=== PATIENT | female | born 1955 | race Caucasian/White ===

== ENCOUNTER 2016-06-01 19:39 | Emergency (ER) | payer OTHER ==
--- NOTE | 2016-06-01 20:05 | EDPHY ---
H & P Stated Complaint: L wrist surg apr, cast removed 6 days ago - a blister has become open wound Time Seen by Provider: 06/01/16 20:04 HPI/ROS: CHIEF COMPLAINT: Left wrist blister. HISTORY OF PRESENT ILLNESS: The patient is a 60-year-old female who presents with a blister on her left wrist. She initially had wrist surgery on 16 April after breaking her wrist and had the cast removed 5 days ago. She immediately noticed a dry blistered area near the suture line that was lanced by the nurse who removed her cast. Since then the blister has become more erythematous and developed drainage. She denies fever, nausea, arm redness. No chest pain, shortness of breath, palpitations, vomiting, diarrhea, urinary complaints, headache, lightheadedness. REVIEW OF SYSTEMS: Aside from elements discussed in the HPI, a comprehensive 10-point review of systems was reviewed and is negative. PAST MEDICAL HISTORY: Partial thyroidectomy, tonsillectomy, left wrist surgery. SOCIAL HISTORY: . VITAL SIGNS: Reviewed by me Alert conversant pleasant EXTREMITIES: Left arm: healing volar incision on forearm. There is an 1cm superficial area of blistering at distal end of incision with small amount of discharge at the base. No warmth. No swelling. Limited ROM at the wrist secondary to prior injury. Portions of this note were transcribed by a manager medical affairs. I personally performed a history, physical exam, medical decision making, and confirmed accuracy of information the transcribed note. Source: Patient Exam Limitations: No limitations - Medical/Surgical History Hx Asthma: No Hx Chronic Respiratory Disease: No Hx Diabetes: No Hx Cardiac Disease: No Hx Renal Disease: No Hx Cirrhosis: No Hx Alcoholism: No Hx HIV/AIDS: No Hx Splenectomy or Spleen Trauma: No Other PMH: 1/2 thyroid removed, tonsillectomy, L wrist surg - Social History Smoking Status: Never smoked Constitutional: Initial Vital Signs Temperature (C) 37 C 06/01/16 19:43 Heart Rate 77 06/01/16 19:43 Respiratory Rate 16 06/01/16 19:43 Blood Pressure 186/96 H 06/01/16 19:43 O2 Sat (%) 94 06/01/16 19:43 O2 Delivery Mode Room Air Allergies/Adverse Reactions: Sulfa (Sulfonamide Antibiotics) Allergy (Verified 06/01/16 19:47) Home Medications: Medication Instructions Recorded CALCIUM 06/01/16 Cephalexin [Keflex (RX)] 500 mg PO QID 6 Days 06/01/16 [place] 5/325 (*) 06/01/16 Medical Decision Making ED Course/Re-evaluation: Will place patient on Keflex. Close followup with the orthopedic surgeon. Differential Diagnosis: Diff diagnosis considered included abrasion, cast blister, superficial cellulitis, wound infection, stitch abscess, deep space infection. - Data Points Medications Given: Discontinued Medications Cephalexin (Keflex 500 Mg Prepack#4) 1 btl TAKEHOME EDNOW ONE PRN Reason: Protocol Stop: 06/01/16 20:32 Last Admin: 06/01/16 20:39 Dose: 1 btl Departure - Departure Disposition: Home, Routine, Self-Care Clinical Impression: Infected cast blister Cellulitis Qualifiers: Site of cellulitis: extremity Site of cellulitis of extremity: upper extremity Laterality: left Qualified Code(s): L03.114 - Cellulitis of left upper limb Condition: Good Instructions: Cephalexin (By mouth), Cellulitis (ED) Additional Instructions: Take Keflex as prescribed. I recommend Ibuprofen (Motrin,Advil) or Naproxen Sodium (Aleve) for pain and anti-inflammatory effects. You may take either one, but do not take both. Your dose is: Ibuprofen 600mg every 6-8 hours with food. OR Naproxen Sodium (Aleve) 220mg every 12 hours. Call your orthopedic surgeon on Friday for reevaluation. Return for fever, red streaking up your arm, nausea and vomiting, other signs of infection, or any other serious worsening of condition. Referrals: NONE *PRIMARY CARE P,. [Primary Care Provider] - As per Instructions Prescriptions: Cephalexin [Keflex (RX)] 500 mg PO QID 6 Days Report Scribed for: Rosanna العراقي Report Scribed by: Freeman Mehta Date of Report: 06/01/16 Time of Report: 20:13
[2016-06-01] MEDS ORDERED: CEPHALEXIN 500MG PREPACK#4 BTL TAKEHOME ONE (20:31)
[2016-06-01 20:48] VITALS: BP 136/91; PULSE 79; RESP 18; TEMP 97.9; O2SAT 95
== END 2016-06-01 20:47 | disposition home or self-care (01) ==
DX: R23.8 Other skin changes (principal); L03.114 Cellulitis of left upper limb